=== PATIENT | female | born 1945 | race Caucasian/White ===

== ENCOUNTER 2019-08-20 02:06 | Emergency (ER) | payer MEDICARE ==
[~2019-08-20] VITALS: Ht 154.9 cm; Wt 55.2 kg
--- NOTE | 2019-08-20 02:16 | NUR ---
Patient c/o intermittent RLQ abd pain which radiates to back. Pain started approx around midnight. Patient rates the pain as a 6/10 but states it is tolerable. Denies urinary symptoms. Denies N/V/D. Patient is in NAD. REspirations even and unlabored.
[2019-08-20 02:37] LABS: BASOPHILS # (AUTO) 0.04 x10^3/uL (0-0.1); BASOPHILS % (AUTO) 1 % (0-1); EOSINOPHILS # (AUTO) 0.15 x10^3/uL (0-0.4); EOSINOPHILS % (AUTO) 3 % (1-7); LYMPHOCYTES # (AUTO) 2.65 x10^3/uL (1-3.4); LYMPHOCYTES % (AUTO) 51 % (22-44); MD NO; MEAN CORPUSCULAR HEMOGLOBIN 31.2 pg (27.0-34.8); MEAN CORPUSCULAR HGB CONC 33.8 g/dL (32.4-35.8); MEAN CORPUSCULAR VOLUME 92.3 fL (80-100); MONOCYTES # (AUTO) 0.56 x10^3/uL (0.2-0.8); MONOCYTES % (AUTO) 11 % (2-9); NEUTROPHILS # (AUTO) 1.83 x10^3/uL (1.8-6.8); NEUTROPHILS % (AUTO) 35 % (42-75); PLATELET COUNT 211 x10^3/uL (130-400); RED BLOOD COUNT 4.95 x10^6/uL (3.82-5.3); RED CELL DISTRIBUTION WIDTH 12.8 % (9.6-15.2)
--- NOTE | 2019-08-20 02:37 | NUR ---
Patient also c/o redness and irritation to bilat eyes.
[2019-08-20 02:48] LABS: ALANINE AMINOTRANSFERASE 24 U/L (12-78); ALBUMIN 3.9 g/dL (3.4-5.0); ANION GAP 5 mmol/L (5-15); CALCIUM 9.3 mg/dL (8.5-10.1); CHLORIDE 104 mmol/L (98-107)
[2019-08-20 02:51] LABS: ALKALINE PHOSPHATASE 49 U/L (45-117); BILIRUBIN,TOTAL 0.2 mg/dL (0.2-1.0); TOTAL PROTEIN 7.7 g/dL (6.4-8.2)
[2019-08-20 03:36] LABS: MICROSCOPIC NOT IND
[2019-08-20 03:40] LABS: CULTURE INDICATED? NO
[2019-08-20 03:54] VITALS: BP 127/52
--- NOTE | 2019-08-20 04:14 | NUR ---
Discharge instructions given. All questions and concerns addressed. Patient ambulatory with a steady gait. Belongings with patient.
== END 2019-08-20 04:16 | disposition home or self-care (01) ==
LOC: ED 03:39
DX: R10.31 Right lower quadrant pain (principal); H10.023 Other mucopurulent conjunctivitis, bilateral
CPT/HCPCS: 36415; 74176; 80053; 81003; 83690; 85025; 99284